=== PATIENT | female | born 1965 | race Two or more races ===

== ENCOUNTER → 2018-05-24 | Outpatient (CLI) | payer OTHER ==
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
== END | disposition home or self-care (01) ==
LOC: KCIC MRI 09:56
PROVIDERS: ATTEND Family Medicine
DX: S32.018D Other fracture of first lumbar vertebra, subsequent encounter for fracture with routine healing (principal); M48.07 Spinal stenosis, lumbosacral region; M51.36 Other intervertebral disc degeneration, lumbar region; M43.15 Spondylolisthesis, thoracolumbar region; R60.0 Localized edema; X58.XXXD Exposure to other specified factors, subsequent encounter
CPT/HCPCS: 72148

== ENCOUNTER → 2021-05-08 | Outpatient (CLI) | payer OTHER ==
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
== END ==
LOC: KCIC MRI 14:48
PROVIDERS: ATTEND Family Medicine
DX: M47.816 Spondylosis without myelopathy or radiculopathy, lumbar region (principal); M48.56XA Collapsed vertebra, not elsewhere classified, lumbar region, initial encounter for fracture; M48.07 Spinal stenosis, lumbosacral region; M51.46 Schmorl's nodes, lumbar region; M48.8X7 Other specified spondylopathies, lumbosacral region; M43.17 Spondylolisthesis, lumbosacral region; M51.26 Other intervertebral disc displacement, lumbar region; M19.90 Unspecified osteoarthritis, unspecified site
CPT/HCPCS: 72148